=== PATIENT | female | born 1930 | race Caucasian/White ===

== ENCOUNTER 2016-04-09 08:31 | Observation (INO) | payer MEDICARE ==
[~2016-04-09] VITALS: Ht 165.1 cm; Wt 52.9 kg
[~2016-04-09 08:31] MED LIST: ACET325T51 PO; ASPI-973 PO; CARV6.252 PO; CLOP75TA3 PO; DICL100G8 TOPICAL; ESTR0.5T PO; GLIP5TAB21 PO; INSU100V4 SUBQ; LEVO50TA83 PO; LISI-567 PO; MULT1CAP33 PO; PROM25SU46 RC; SIMV40TA5 PO; ZOLP10TA5 PO
[2016-04-09 08:36] VITALS: BP 156/50; PULSE 79; RESP 13; O2SAT 95
--- NOTE | 2016-04-09 09:15 | DRSVH ---
PROCEDURE: X-RAY PELVIS W/LAT HIP (RT) ([id number]) INDICATIONS: fall, right hip pain TECHNIQUE: AP pelvis with lateral view(s) of the right hip(s). COMPARISON: None. FINDINGS: Bones: No acute fractures or dislocations. Chronic appearing right obturator ring fractures noted. Pelvic ring appears intact. No suspicious bony lesions. Bilateral hip osteophyte is noted. Soft tissues: The visualized bowel gas pattern is normal. No suspicious soft tissue calcifications. IMPRESSION: No acute fracture. No acute osseous lesion. If symptoms and/or clinical suspicion for pa thology persists, further assessment with repeat radiographs or advanced imaging (e.g. CT, MRI or bon e scan) may be helpful for further assessment. Dictated by: Eden Colby MD, PhD on 04/09/2016 at 9:13 Approved by: Eden Colby MD, PhD on 04/09/2016 at 9:13
--- NOTE | 2016-04-09 09:19 | ED.REPORT ---
HPI-Trauma Minor / Fall Date of Service Apr 09, 2016 ED Provider: Baldo Wayne DO Patient is an 86 year old female who presents to the ED via EMS complaining of R pelvis/hip pain s/p a fall to the ground last night after tripping and falling in the dark. She was able to ambulate after the incident but this morning she could not bare weight. When she fell she hit the back of her head and is complaining of head pain. She denies neck pain, back pain, LOC, or any other symptoms. She has been off of blood thinners for one month. Nursing Notes Stated Complaint: PELVIC PAIN, HEAD INJURY, GLF Chief Complaint: Multiple Trauma/Fall Nursing Notes Reviewed: Yes Allergies: Coded Allergies: Sulfa (Sulfonamide Antibiotics) (Verified Allergy, Severe, Rash, 08/04/15) codeine (Verified Adverse Reaction, Unknown, 08/04/15) Uncoded Allergies: ZOFRAN (Allergy, Intermediate, 03/07/16) "stroke symptoms" Scheduled Aspirin (Aspirin) 81 Mg Tablet.dr 81 MG PO Q2DAY Carvedilol (Carvedilol) 6.25 Mg Tablet 6.25 MG PO BID Clopidogrel Bisulfate (Plavix) 75 Mg Tablet 75 MG PO DAILY Estradiol (Estradiol) 0.5 Mg Tablet 0.5 MG PO DAILY Glipizide ER (Glipizide ER) 10 Mg Tab.er.24 10 MG PO BID Insulin Detemir (Levemir U100 Insulin Vial) 100 Unit/1 Ml Vial 6 UNIT SUBQ BID Levothyroxine (Synthroid) 50 Mcg Tablet 50 MCG PO DAILY Lisinopril (Lisinopril) 20 Mg Tablet 20 MG PO DAILY Multivitamin (Multivitamins) 1 Each Capsule 1 EACH PO DAILY Simvastatin (Simvastatin) 40 Mg Tablet 20 MG PO HS Scheduled PRN Acetaminophen (Acetaminophen) 325 Mg Tablet 325 MG PO Q4H PRN PRN For Fever Promethazine HCl (Phenergan) 25 Mg Supp.rect 25 MG RC TID PRN PRN For Nausea Zolpidem (Zolpidem) 10 Mg Tablet 10 MG PO HS PRN PRN For Insomnia Miscellaneous Medications Diclofenac Gel (Voltaren Gel) 100 Gm Tube 1 APPLIC TOPICAL General Time Seen by MD: 08:33 Chief Complaint Fall Hx Obtained From: Patient, EMS Arrived By: Ambulance Past Medical History Past Medical History Old compression fracture T4 Thyroid disease Reports: Diabetes mellitus, Hypertension Past Surgical History Aortic 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 Physical Exam Initial Vital Signs Vital Signs (First) Date Time Temp Pulse Resp B/P Pulse Ox O2 Delivery O2 Flow Rate FiO2 04/09/16 08:36 36.7 79 13 156/50 95 Room Air Initial VS: Reviewed Respiratory: Breath sounds normal, Clear to auscultation, No respiratory distress Cardiovascular: Regular rate & rhythm, Heart sounds normal, Intact distal pulses Skin: Warm, Dry Neurologic: Alert, Oriented, Nonfocal Psychiatric: Mood/affect normal, Behavior normal, Normal thought content General/Constitutional: Awake, Alert, Well appearing, Well developed Neck: Atraumatic, Supple, Full range of motion Head / Eyes: Normocephalic 3x3 cm posterior R occipital hematoma Cardiovascular: Heart rate NL, Regular rhythm, Heart sounds NL, Peripheral circulation NL, Pulses = bilaterally Back: Atraumatic, Inspection NL, Non-tender Lower Extremity / Pelvis / MS: Neurologic intact, Vascular intact Left Hip: Positive: Tenderness present... (Mild) eda tenderness in R hemipelvis Interpretation & Diagnostics CT PELVIS WITHOUT CONTRAST: IMPRESSION: 1. Nondisplaced anterior right acetabular fracture. 2. Fracture of the left pubic bone involving the body, superior ramus and inferior ramus. Dictated by: Eden Colby MD, PhD on 04/09/2016 at 11:45 Approved by: Eden Colby MD, PhD on 04/09/2016 at 11:45 Lab Results Interpretation Test 04/09/16 10:21 Hold Urine Received (Received) X-Ray Interpretation Xray Interpretation: IMPRESSION: No acute fracture. No acute osseous lesion. If symptoms and/or clinical suspicion for pathology persists, further assessment with repeat radiographs or advanced imaging (e.g. CT, MRI or bone scan) may be helpful for further assessment. Dictated by: Eden Colby MD, PhD on 04/09/2016 at 9:13 Approved by: Eden Colby MD, PhD on 04/09/2016 at 9:13 Study Performed: R Hip/pelvis X-Ray Ordered: Pelvis, Hip right Interpretation / Wet Read by: Interpret - Radiologist Xray Interpretation: IMPRESSION: No acute fracture. No acute osseous lesion. If symptoms and/or clinical suspicion for pathology persists, further assessment with repeat radiographs or advanced imaging (e.g. CT, MRI or bone scan) may be helpful for further assessment. Dictated by: Eden Colby MD, PhD on 04/09/2016 at 9:47 Approved by: Eden Colby MD, PhD on 04/09/2016 at 9:47 Study Performed: Pelvis, 2 views X-Ray Ordered: Pelvis Interpretation / Wet Read by: Interpret - Radiologist CT Head Interpretation IMPRESSION: No acute intracranial disease process. Dictated by: Eden Colby MD, PhD on 04/09/2016 at 9:29 Approved by: Eden Colby MD, PhD on 04/09/2016 at 9:29 Study: Head CT no contrast Interpretation / Wet Read by: Interpret - Radiologist Re-Eval/Medical Decision Med Decision/Clinical Course multiple pelvic fractures due to mechanical fall. unable to safely ambulate at home. Will be admitted. Re-Evaluation/Progress : Time of Eval: 12:06 Re-Evaluation/Progress Note: Rechecked patient. Discussed imaging results. Discussed plan for admit and rehabilitation. Patient understands and agrees with plan. All questions addressed at this time. Consultation #1: Referral / Consult Name: Sivakumar Rivas MD Consulted With: Orthopedic Call Returned at: 12:02 Note: Agrees to consult. TTWB on right, WBAT on left, get PT involved Consultation #2: Referral / Consult Name: Rodo Perez MD Consulted With: Hospitalist Call Returned at: 12:23 Mailing Section Clerk: Will see patient, Agrees with eval, Agrees with plan, Accepts admit Note: Agrees to admit Counseled Regarding: Diagnosis, Lab results, Need for admission Discharge & Departure Impression: Primary Impression: Pelvic fracture Disposition: ADMITTED TO HOSPITAL Referrals: Seth Mckay MD (PCP) Scribe Attestation Portions of this note were transcribed by Chuy Casas. I, Dr. Wayne personally performed the history, physical exam and medical decision-making; I reviewed and confirmed the accuracy of the information in the transcribed note. Signed by: Chuy Casas 04/09/16, 1257 copies to: Seth Mckay MD, Timothy S DO Apr 09, 2016 09:19 CHUY CASAS Apr 09, 2016 09:31
--- NOTE | 2016-04-09 09:31 | DRSVH ---
PROCEDURE: CT BRAIN WITHOUT CONTRAST ([id number]) INDICATIONS: fall, head injury TECHNIQUE: Noncontrast 4.5 mm thick angled axial sections acquired from the foramen magnum to the vertex, with c oronal reformats. COMPARISON: [facility], CT, BRAIN W/O CONTRAST, 02/02/2014, 21:23. FINDINGS: Image quality: Excellent. CSF spaces: Basal cisterns are patent. No extra-axial fluid collections. The ventricles are symmet terrance in size and shape. Brain: No intracranial bleeds or masses. There is cerebral volume loss for age, with resultant vent ricular and sulcal prominence. 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 There are periventricular and deep white matter chronic small vessel ischemic changes. There is intracranial internal carotid artery and vertebral artery atherosclerosis. Skull and face: Calvarium and visualized facial bones appear intact, without suspicious lesions. Lar ge right occipital scalp hematoma is noted. Sinuses: Mucosal thickening noted in the right maxillary sinus. The mastoids are clear. IMPRESSION: No acute intracranial disease process. Dictated by: Eden Colby MD, PhD on 04/09/2016 at 9:29 Approved by: Eden Colby MD, PhD on 04/09/2016 at 9:29
--- NOTE | 2016-04-09 09:49 | DRSVH ---
PROCEDURE: X-RAY PELVIS, ONE OR TWO VIEWS ([id number]) INDICATIONS: more views of right pelvis TECHNIQUE: 2 view(s) of the pelvis acquired. COMPARISON: None. FINDINGS: Bones: No acute fractures or dislocations. Chronic right obturator ring fractures noted. No suspici ous bony lesions. Soft tissues: Visualized bowel gas pattern is normal. No suspicious soft tissue calcifications. IMPRESSION: No acute fracture. No acute osseous lesion. If symptoms and/or clinical suspicion for pa thology persists, further assessment with repeat radiographs or advanced imaging (e.g. CT, MRI or bon e scan) may be helpful for further assessment. Dictated by: Eden Colby MD, PhD on 04/09/2016 at 9:47 Approved by: Eden Colby MD, PhD on 04/09/2016 at 9:47
--- NOTE | 2016-04-09 11:46 | DRSVH ---
PROCEDURE: CT PELVIS WITHOUT CONTRAST ([id number]) INDICATIONS: eval for occult injury or fracture TECHNIQUE: Noncontrast 3 mm axial sections acquired through the bony pelvis. Additional 3 mm axial sections acq uired through the symptomatic hip joint, with coronal and sagittal reformats. COMPARISON: None. FINDINGS: Image quality: Excellent. Bones: There is a nondisplaced fractures of the anterior margin of the right acetabulum (series 3, i mage 44-50). The fractures involving the left pubic body with extension into the left superior and i nferior pubic rami noted. Old right obturator ring fracture is noted. 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 Bilateral sacroiliac joint osteoarthritic degenerative changes are n oted. Lower lumbar spine degenerative disc disease and facet arthropathy are noted. Bones are diffu sely osteopenic. Soft tissues: No soft tissue fluid collections identified. No free intraperitoneal fluid or air mary ntified. Urinary bladder is within normal limits. IMPRESSION: 1. Nondisplaced anterior right acetabular fracture. 2. Fracture of the left pubic bone involving the body, superior ramus and inferior ramus. Dictated by: Eden Colby MD, PhD on 04/09/2016 at 11:45 Approved by: Eden Colby MD, PhD on 04/09/2016 at 11:45
[2016-04-09 12:48] VITALS: BP 156/58; PULSE 75; RESP 18; O2SAT 94
[2016-04-09] MEDS ORDERED: Ondansetron 2 mg/mL 2 mL Inj IVPUSH PRN ×2 (12:55→18:50)
[2016-04-09] MEDS ORDERED: Alum-Mag Hydrox-Simeth 30 mL Suspension PO PRN (12:55)
[2016-04-09] MEDS: 0.9% Sodium Chloride 250 ML IV SCH (13:11)
[2016-04-09] MEDS ORDERED: Polyethylene Glycol (PEG) 17 Gm Powder PO PRN (13:15)
[2016-04-09 13:31] VITALS: BP 156/58; PULSE 75; RESP 18; O2SAT 94
[2016-04-09 13:59] VITALS: BP 166/75; PULSE 72; RESP 16; O2SAT 100
[2016-04-09 14:50] VITALS: BP 168/75; PULSE 80; RESP 18; O2SAT 92
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
[2016-04-09] MEDS ORDERED: INSU100I25 SQ (16:27)
--- NOTE | 2016-04-09 16:29 | PCM.HPMED ---
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 She states she was going to bed and turned off the light but remembered something and tries to walk in the dark and tripped over and fell to the ground. She was able to get up and go to bed. Her right hip was painful. This morning she went to bathroom and has excruciating pain in her right hip and pelvis which prompted ED visit. Denies lightheadedness prior to fall. Denies chest pain in ED CT pelvis showed Nondisplaced anterior right acetabular fracture. Fracture of the left pubic bone involving the body, superior ramus and inferior ramus.. Brain CT unremarkable Admission requested for right acetabular fracture and pelvic fracture Review of Systems: A comprehensive review of systems performed, pertinent positives and negatives included in history of present illness Allergies Coded Allergies: Sulfa (Sulfonamide Antibiotics) (Verified Allergy, Severe, Rash, 08/04/15) codeine (Verified Adverse Reaction, Unknown, 08/04/15) Uncoded Allergies: ZOFRAN (Allergy, Intermediate, 03/07/16) "stroke symptoms" Home Medications Aspirin 81 mg daily Coreg 6.5 mg twice a day Estradiol 0.5 mg daily Glipizide 10 mg by mouth twice a day Levemir 8 units in a.m. 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 Repeat echo after valve replacement note available here. TAVR at Surgical History Recent TAVR Ectopic 2 when she was young Family History Reviewed and unremarkable Social History Hx Alcohol Use: No Hx Substance Use: No Smoking Status: Never Smoker Living Arrangement: Alone Exam Vital Signs Vital Sign - Last Date Time Temp Pulse Resp B/P Pulse Ox O2 Delivery O2 Flow Rate FiO2 04/09/16 13:59 36.7 72 16 166/75 100 Room Air Exam Gen. patient is lying comfortably in hospital bed HEENT: Head is normocephalic atraumatic, Pupils equal and reactive, extraocular movements intact, Lungs clear to auscultation bilaterally Heart regular rate and rhythm without murmurs gallops or rubs Abdomen soft nontender without hepatosplenomegaly Extremities right hip tenderness on passive movement Psych alert and oriented to person place and time Neuro cranial nerves II through XII are grossly intact Lymph: There is no lymphadenopathy appreciated in the cervical supra infraclavicular regions : no jackson Lab and Diagnostics X-Rays, CTs and MRIs PROCEDURE: CT PELVIS WITHOUT CONTRAST ([id number]) INDICATIONS: eval for occult injury or fracture TECHNIQUE: Noncontrast 3 mm axial sections acquired through the bony pelvis. Additional 3 mm axial sections acquired through the symptomatic hip joint, with coronal and sagittal reformats. COMPARISON: None. FINDINGS: Image quality: Excellent. Bones: There is a nondisplaced fractures of the anterior margin of the right acetabulum (series 3, image 44-50). The fractures involving the left pubic body with extension into the left superior and inferior pubic rami noted. Old right obturator ring fracture is noted. 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 Bilateral sacroiliac joint osteoarthritic degenerative changes are noted. Lower lumbar spine degenerative disc disease and facet arthropathy are noted. Bones are diffusely osteopenic. Soft tissues: No soft tissue fluid collections identified. No free intraperitoneal fluid or air identified. Urinary bladder is within normal limits. IMPRESSION: 1. Nondisplaced anterior right acetabular fracture. 2. Fracture of the left pubic bone involving the body, superior ramus and inferior ramus. 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 # Nondisplaced anterior right acetabular fracture and pelvic fracture due to mechanical fall, acute,poa -pain mx:morphine -ortho recommends non operative mx: "nonoperative management for her right acetabular and left pelvic fractures. The patient should avoid any more than touchdown weightbearing through her right lower extremity for the next 12 weeks to allow her acetabular fracture to heal in its present nondisplaced position. 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
[2016-04-09] MEDS: glipiZIDE 2.5 mg ER24 Tablet PO SCH (17:52)
[2016-04-09] MEDS: Insulin GLARgine 100 Unit/mL Syringe SUBQ SCH ×2 (18:50→22:23)
[2016-04-09] MEDS: MetoCLOpramide 5 mg/mL 2 mL Inj IVPUSH PRN (19:34)
--- NOTE | 2016-04-09 19:46 | NUR ---
Observation information provided and explained to pt and her son Brooklyn who is at bedside.
[2016-04-09] MEDS ORDERED: Insulin GLARgine 100 Unit/mL Syringe SUBQ SCH (20:30)
[2016-04-09] MEDS ORDERED: INSULIN DETEMIR 6 UNIT SUBQ SCH (20:30)
[2016-04-09] MEDS ORDERED: Non-Formulary Medication (Glipizide ER 10 MG) PO SCH (20:30)
[2016-04-09 20:40] VITALS: BP 162/76; PULSE 84; RESP 18; O2SAT 94
--- NOTE | 2016-04-09 23:41 | NUR ---
Pain Patient c/o 510 right hip pain. Offered Simon 5/325 PO or Morphine IVP. Patient declined both, stating, they would make her stomach upset tomorrow. Requesting order for Ultram PO and Tylenol PO. Dr. Arreola paged @ [phone] and new orders received. Medications given per order with effective results. Currently resting with eyes closed.
[2016-04-10 02:00] VITALS: BP 141/69; PULSE 84; RESP 16; O2SAT 98
[2016-04-10 07:01] LABS: BASOPHILS % (AUTO) 0.1 % (0-3); EOSINOPHILS % (AUTO) 3.3 % (0-5); MONOCYTES % (AUTO) 10.9 % (4-12); Mean Corpuscular Hemoglobin 31.3 pg (27.0-35.0); Mean Corpuscular Volume 92.3 fL (81-100); NEUTROPHILS % (AUTO) 67.1 % (40-74); Platelet Count 120 bil/L (150-400)
[2016-04-10 07:07] VITALS: BP 123/62; PULSE 80; RESP 18; O2SAT 93
[2016-04-10 07:20] LABS: Magnesium 1.7 mg/dL (1.6-2.6)
[2016-04-10] MEDS: Insulin GLARgine 100 Unit/mL Syringe SUBQ SCH ×2 (08:28→20:56)
[2016-04-10] MEDS ORDERED: Non-Formulary Medication (Multivitamin (Multivitamins) 1 EACH) PO SCH (08:30)
[2016-04-10 10:05] LABS: APPEARANCE,URINE CLEAR (CLEAR,HAZY); COLOR,URINE YELLOW (YELLOW); OCCULT BLOOD,URINE NEGATIVE (NEGATIVE); UROBILINOGEN,URINE NORMAL (NORMAL)
[2016-04-10] MEDS: glipiZIDE 2.5 mg ER24 Tablet PO SCH ×2 (10:05→16:55)
[2016-04-10] MEDS: MetoCLOpramide 5 mg/mL 2 mL Inj IVPUSH PRN ×3 (11:43→23:16)
--- NOTE | 2016-04-10 12:03 | NUR ---
Evaluation completed. Please go to "Notes" then click on "Assessments and Notes" (bottom left corner of screen). Then select appropriate discipline tab on top of screen.
[2016-04-10] MEDS ORDERED: ProchlorPERazine 5 mg/mL 2 mL Inj IVPUSH ONE (12:35)
[2016-04-10] MEDS: 0.9% Sodium Chloride 250 ML IV SCH (13:11)
--- NOTE | 2016-04-10 13:26 | PCM.PNMED ---
Subjective Date of Service Apr 10, 2016 Subjective She had nausea. Allergic to Zofran, Reglan given, pain controlled. Blood pressure elevated but now improving Exam Vital Signs Vital Sign - Last Date Time Temp Pulse Resp B/P Pulse Ox O2 Delivery O2 Flow Rate FiO2 04/10/16 07:07 37.1 80 18 123/62 93 Room Air Intake and Output 04/09/16 04/09/16 04/10/16 Cumulative From/Thru 15:00 23:00 07:00 04/09/16 08:36 - 04/09/16 18:58 Intake Total 150 ml 150 ml Output Total 850 ml 850 ml Balance -700 ml -700 ml Intake Oral 150 ml 150 ml Output Urine Total 850 ml 850 ml Exam Gen. patient is lying comfortably in hospital bed HEENT: Head is normocephalic atraumatic, Pupils equal and reactive, extraocular movements intact, Lungs clear to auscultation bilaterally Heart regular rate and rhythm without murmurs gallops or rubs Abdomen soft nontender without hepatosplenomegaly Extremities right hip tenderness on passive movement Psych alert and oriented to person place and time Neuro cranial nerves II through XII are grossly intact Lymph: There is no lymphadenopathy appreciated in the cervical supra infraclavicular regions : no jackson IVs and Medications Medications Reviewed: Medications were reviewed in detail Lab and Diagnostics Result Diagram: 04/10/1662604/10/16626 X-Rays, CTs and MRIs PROCEDURE: CT PELVIS WITHOUT CONTRAST ([id number]) INDICATIONS: eval for occult injury or fracture TECHNIQUE: Noncontrast 3 mm axial sections acquired through the bony pelvis. Additional 3 mm axial sections acquired through the symptomatic hip joint, with coronal and sagittal reformats. COMPARISON: None. FINDINGS: Image quality: Excellent. Bones: There is a nondisplaced fractures of the anterior margin of the right acetabulum (series 3, image 44-50). The fractures involving the left pubic body with extension into the left superior and inferior pubic rami noted. Old right obturator ring fracture is noted. 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 Bilateral sacroiliac joint osteoarthritic degenerative changes are noted. Lower lumbar spine degenerative disc disease and facet arthropathy are noted. Bones are diffusely osteopenic. Soft tissues: No soft tissue fluid collections identified. No free intraperitoneal fluid or air identified. Urinary bladder is within normal limits. IMPRESSION: 1. Nondisplaced anterior right acetabular fracture. 2. Fracture of the left pubic bone involving the body, superior ramus and inferior ramus. 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 # Nondisplaced anterior right acetabular fracture and pelvic fracture due to mechanical fall, acute,poa -pain mx:morphine -ortho recommends non operative mx: "nonoperative management for her right acetabular and left pelvic fractures. The patient should avoid any more than touchdown weightbearing through her right lower extremity for the next 12 weeks to allow her acetabular fracture to heal in its present nondisplaced position. 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 Possible discharge tomorrow Rodo Perez MD Apr 10, 2016 13:26
[2016-04-10] MEDS: HYDROcodone-APAP 5-325 mg Tablet PO PRN (15:53)
[2016-04-10 16:12] VITALS: BP 153/37; PULSE 74; RESP 18; O2SAT 94
--- NOTE | 2016-04-10 16:23 | NUR ---
Social Work Initial Assessment D: EMR Reviewed. See initial assessment. Pt is an 86Y old female INof for Multiple pelvic fractures. [employer] is Medicare and [employer] Supp. PCP is Dr. Mckay. [facility] met with Pt and son at bedside, SW role explained. Pt lives in a mobile home independently. Pt does not use DME but has both FWW and 4WW if needed. Pt's son and DIL also live in the same mobile home park. Pt continues to drive. Pt has previous HH history, denies SNF. No surgical repair indicated. PT=SNF. SW discussed with Pt and family. Pt to pay privately at SNF. [facility] to [facility] Pt with Dr. Norwood to follow. Acceptance not received until late this afternoon, current bed will be $295/day if still available tomorrow. SW will need to contact [facility] in the morning to confirm. Pt to likely discharge tomorrow. SW following. A: Pt who is independent at baseline P: PT=SNF. [facility] discussed with Pt and family. Pt to pay privately at SNF. [facility] to [facility] Pt with Dr. Norwood to follow. Acceptance not received until late this afternoon, current bed will be $295/day if still available tomorrow. SW will need to contact [facility] in the morning to confirm. Pt to likely discharge tomorrow. [facility] following. LALY Ravi Addendum: 04/10/16 at 1627 by KEISHA CAMARENA Amended: Links added.
--- NOTE | 2016-04-10 16:33 | NUR ---
Took over care at 3:30 pm Addendum: 04/10/16 at 1633 by LUZ MARIA RUANO CNA Amended: Links added.
--- NOTE | 2016-04-10 16:39 | NUR ---
Pt up to Bedside Commode Pt got out of bed for first time since admission to bed side commode after [place] to control pain. Pain currently, after transfer is a 3-4/10
[2016-04-10 21:30] VITALS: BP 180/81; PULSE 81; RESP 20; O2SAT 95
--- NOTE | 2016-04-10 22:44 | NUR ---
HTN: elevated bp's 160-170 systolic, pt. on 20mg lisinopril in am, pt. has had pain and anxiety with mobility.
[2016-04-11 00:51] VITALS: BP 152/75; PULSE 72; RESP 18; O2SAT 97
[2016-04-11] MEDS: HYDROcodone-APAP 5-325 mg Tablet PO PRN ×2 (04:51→11:14)
[2016-04-11 05:56] VITALS: BP 166/70; PULSE 71; RESP 18; O2SAT 96
[2016-04-11] MEDS: glipiZIDE 2.5 mg ER24 Tablet PO SCH (08:21)
[2016-04-11] MEDS: Insulin GLARgine 100 Unit/mL Syringe SUBQ SCH (08:24)
[2016-04-11] MEDS: 0.9% Sodium Chloride 250 ML IV SCH (13:11)
--- NOTE | 2016-04-11 13:16 | PCM.DIMED ---
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 Please continue physical therapy at [facility] facility. Please continue hydromorphone for pain as needed. Please continue aspirin for DVT prophylaxis. Follow-up plan Please follow-up with Dr Norwood at [facility] . Please follow-up with PCP 1 -2 weeks after discharge from [facility] facility. Please follow-up with orthopedics Dr. Rob Shaver on 04/21/2016. Please call his office to make the appointment. Follow-up Provider: Antonella Norwood MD Follow-up with PCP in: 1 week Provider: Seth Mckay MD Follow-up in: 3 weeks Mid-level Provider (F9): Sivakumar Rivas MD Follow-up with Mid-level in: 3 weeks Rodo Perez MD Apr 11, 2016 13:16
[2016-04-11] MEDS ORDERED: ENOX40DI8 SUBQ (13:18)
[2016-04-11] MEDS ORDERED: TRAM-14 PO (13:18)
[2016-04-11] MEDS ORDERED: HYDR-4003 PO (13:18)
[2016-04-11] MEDS: MetoCLOpramide 5 mg/mL 2 mL Inj IVPUSH PRN (13:23)
--- NOTE | 2016-04-11 14:15 | NUR ---
Social Work Discharge D: EMR Reviewed. Pt is on day 2 for multiple pelvic fractures. Pt is medically stable and discharging to [facility] with Dr. Norwood to follow via [facility]. Pt to pay privately for SNF and [facility] as Pt does not have a qualifying hospital stay and has been [facility] during this admission. [facility] updated Pt, family and [facility] admissions. All parties agreeable to plan. A: Pt who is independent at baseline P: t is medically stable and discharging to [facility] with Dr. Norwood to follow via [facility]. Pt to pay privately for SNF and [facility] as Pt does not have a qualifying hospital stay and has been [facility] during this admission. [facility] updated Pt, family and [facility] admissions. All parties agreeable to plan. LALY Ravi
--- NOTE | 2016-04-11 14:38 | PCM.DC.MED ---
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 Sivakumar Rivas Procedures XRay, CTs & MRIs PROCEDURE: CT PELVIS WITHOUT CONTRAST ([id number]) INDICATIONS: eval for occult injury or fracture TECHNIQUE: Noncontrast 3 mm axial sections acquired through the bony pelvis. Additional 3 mm axial sections acquired through the symptomatic hip joint, with coronal and sagittal reformats. COMPARISON: None. FINDINGS: Image quality: Excellent. Bones: There is a nondisplaced fractures of the anterior margin of the right acetabulum (series 3, image 44-50). The fractures involving the left pubic body with extension into the left superior and inferior pubic rami noted. Old right obturator ring fracture is noted. 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 Bilateral sacroiliac joint osteoarthritic degenerative changes are noted. Lower lumbar spine degenerative disc disease and facet arthropathy are noted. Bones are diffusely osteopenic. Soft tissues: No soft tissue fluid collections identified. No free intraperitoneal fluid or air identified. Urinary bladder is within normal limits. IMPRESSION: 1. Nondisplaced anterior right acetabular fracture. 2. Fracture of the left pubic bone involving the body, superior ramus and inferior ramus. 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 She states she was going to bed and turned off the light but remembered something and tries to walk in the dark and tripped over and fell to the ground. She was able to get up and go to bed. Her right hip was painful. This morning she went to bathroom and has excruciating pain in her right hip and pelvis which prompted ED visit. Denies lightheadedness prior to fall. Denies chest pain in ED CT pelvis showed Nondisplaced anterior right acetabular fracture. Fracture of the left pubic bone involving the body, superior ramus and inferior ramus.. 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 # Nondisplaced anterior right acetabular fracture and pelvic fracture due to mechanical fall, acute,poa -pain mx: Percocet and tramadol as needed -ortho recommends non operative mx: "nonoperative management for her right acetabular and left pelvic fractures. The patient should avoid any more than touchdown weightbearing through her right lower extremity for the next 12 weeks to allow her acetabular fracture to heal in its present nondisplaced position. 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 Please follow-up with orthopedics Dr. Rob Shaver on 04/21/2016. Please call his office to make the appointment. Exam Vital Signs (Last) Date Time Temp Pulse Resp B/P Pulse Ox O2 Delivery O2 Flow Rate FiO2 04/11/16 05:56 36.7 71 18 166/70 96 Room Air Exam Gen. patient is lying comfortably in hospital bed HEENT: Head is normocephalic atraumatic, Pupils equal and reactive, extraocular movements intact, Lungs clear to auscultation bilaterally Heart regular rate and rhythm without murmurs gallops or rubs Abdomen soft nontender without hepatosplenomegaly Extremities right hip tenderness on passive movement Psych alert and oriented to person place and time Neuro cranial nerves II through XII are grossly intact Lymph: There is no lymphadenopathy appreciated in the cervical supra infraclavicular regions : no jackson Test 04/09/16 10:21 04/10/16 06:27 Urine Color Yellow (YELLOW) Urine Appearance Clear (CLEAR,HAZY) Urine pH 6.0 (5.0-8.0) Urine Specific [place] 1.014 (1.003-1.035) Urine Protein Negativemg/dL (NEG,TRACE) Urine Glucose (UA) 250mg/dL (NEGATIVE) Urine Ketones Tracemg/dL (NEGATIVE) Urine Occult Blood Negative (NEGATIVE) Urine Nitrite Negative (NEGATIVE) Urine Bilirubin Negative (NEGATIVE) Urine Urobilinogen Normalmg/dL (NORMAL) Urine Leukocyte Esterase Negative (NEGATIVE) Urine RBC 0-2/hpf (0-2) Urine WBC 0-5/hpf (0-5) Urine Epithelial Cells Few/hpf (NONE-MOD) Urine Crystals None seen (NONE SEEN) Urine Bacteria None/hpf (NONE-FEW) Urine Hyaline Casts None/lpf (NONE) Urine Granular Casts None seen (NONE SEEN) Urine Waxy Casts None seen (NONE SEEN) Urine Red Blood Cell Casts None seen (NONE SEEN) Urine White Blood Cell Casts None seen (NONE SEEN) Urine Mucus None seen (None Seen) Urine Trichomonas None seen (NONE SEEN) Urine Yeast None (NONE SEEN) Urinalysis Comment None Urine Culture Reflexed Not indicated Hold Urine Received (Received) White Blood Count 6.7th/mm3 (3.8-10.1) Red Blood Count 3.51mil/mm3 (3.90-5.20) Hemoglobin 11.0g/dL (12.0-15.6) Hematocrit 32.4% (35.0-46.0) Mean Corpuscular Volume 92.3fL (81-100) Mean Corpuscular Hemoglobin 31.3pg (27.0-35.0) Mean Corpuscular Hemoglobin Concent 34.0% (32.0-37.0) Red Cell Distribution Width 12.6% (12.3-15.4) Platelet Count 120bil/L (150-400) Neutrophils (%) (Auto) 67.1% (40-74) Lymphocytes (%) (Auto) 18.5% (14-46) Monocytes (%) (Auto) 10.9% (4-12) Eosinophils (%) (Auto) 3.3% (0-5) Basophils (%) (Auto) 0.1% (0-3) Sodium Level 132mEq/L (134-144) Potassium Level 4.3mEq/L (3.5-5.2) Chloride Level 96mEq/L (97-108) Carbon Dioxide Level 25mmol/L (18-29) Blood Urea Nitrogen 22mg/dL (8-27) Creatinine 0.82mg/dL (0.57-1.00) Estimat Glomerular Filtration Rate 95mL/min (>59) Glucose Level 150mg/dL (60-99) Calcium Level 8.5mg/dL (8.5-10.1) Magnesium Level 1.7mg/dL (1.6-2.6) Total Bilirubin 0.7mg/dL (0.0-1.2) Aspartate Amino Transf (AST/SGOT) 14U/L (0-50) Alanine Aminotransferase (ALT/SGPT) 11U/L (0-32) Alkaline Phosphatase 46U/L (25-165) Total Protein 5.6g/dL (6.4-8.4) Albumin 3.4g/dL (3.4-5.0) Discharge Medications Discharge Medications Aspirin (Aspirin) 81 Mg Tablet.dr 81 MG PO Q2DAY (Reported) Carvedilol (Carvedilol) 6.25 Mg Tablet 6.25 MG PO BID (Reported) Enoxaparin Sodium (Enoxaparin Sodium) 40 Mg/0.4 Ml Syringe 40 MG SUBQ DAILY Prescribed by: RODO BUTLER MD Estradiol (Estradiol) 0.5 Mg Tablet 0.5 MG PO DAILY (Reported) Glipizide ER (Glipizide ER) 10 Mg Tab.er.24 10 MG PO BID (Reported) Insulin Detemir (Levemir U100 Insulin Vial) 100 Unit/1 Ml Vial 6 UNIT SUBQ DAILYWD (Reported) Insulin Detemir (Levemir Flextouch) 100 Unit/1 Ml Insuln.pen 8 UNIT SQ DAILYWM ( Reported) Levothyroxine (Synthroid) 50 Mcg Tablet 50 MCG PO DAILY (Reported) Lisinopril (Lisinopril) 20 Mg Tablet 20 MG PO DAILY (Reported) Multivitamin (Multivitamins) 1 Each Capsule 1 EACH PO DAILY (Reported) Simvastatin (Simvastatin) 40 Mg Tablet 20 MG PO HS (Reported) As needed Acetaminophen (Acetaminophen) 325 Mg Tablet 325 MG PO Q4H PRN PRN For Fever ( Reported) Hydrocodone-Acetaminophen 5-325 mg (Hydrocodone-Acetaminophen 5-325 mg) 1 Each Tablet 1-2 TABLET PO Q6H PRN PRN For Mild Pain Prescribed by: RODO BUTLER MD Tramadol (Ultram) 50 Mg Tablet 50 MG PO Q6H PRN PRN For Pain Prescribed by: RODO BUTLER MD Zolpidem (Zolpidem) 10 Mg Tablet 10 MG PO HS PRN PRN For Insomnia (Reported) Followup Plan Disposition: [facility] Follow-up plan Please follow-up with Dr Norwood at [facility] . Please follow-up with PCP 1 -2 weeks after discharge from [facility]. Please follow-up with orthopedics Dr. Rob Shaver on 04/21/2016. Please call his office to make the appointment. Discharge Diet: Low fat, Low Sodium Discharge Activity: Limited until seen by PCP Patient Instructions You were hospitalized due to Nondisplaced anterior right acetabular fracture and pelvic fracture due to mechanical fall. Please continue physical therapy at detention [facility]. Please continue hydromorphone for pain as needed. Please continue aspirin for DVT prophylaxis. Follow-up Provider: Antonella Norwood MD Follow-up with PCP in: 1 week Provider: Seth Mckay MD Follow-up in: 3 weeks Mid-level Provider: Sivakumar Rivas MD Follow-up with Mid-level in: 3 weeks copies to: Antonella Norwood MD; Seth Mckay MD, Melaku MD Apr 11, 2016 14:38
--- NOTE | 2016-04-11 15:03 | NUR ---
Faxed orders to [facility] and patient is being transported via [facility] at 1500.
--- NOTE | 2016-04-11 15:18 | NUR ---
Discharge To [facility] via cabulance at 15:15. Steady transfer to wheelchair. IV discontinued intact. All belongings sent with pt. Report phoned to [facility].
== END 2016-04-11 15:16 ==
LOC: SED 08:31 → OSC 12:50
PROVIDERS: ADMIT Internal Medicine; ATTEND Internal Medicine
DX: S32.414A Nondisplaced fracture of anterior wall of right acetabulum, initial encounter for closed fracture (principal); S32.512A Fracture of superior rim of left pubis, initial encounter for closed fracture; Y93.01 Activity, walking, marching and hiking; W01.0XXA Fall on same level from slipping, tripping and stumbling without subsequent striking against object, initial encounter; Y92.013 Bedroom of single-family (private) house as the place of occurrence of the external cause; E11.9 Type 2 diabetes mellitus without complications; I11.0 Hypertensive heart disease with heart failure; I50.20 Unspecified systolic (congestive) heart failure; E03.9 Hypothyroidism, unspecified; Z79.4 Long term (current) use of insulin; Z79.84 Long term (current) use of oral hypoglycemic drugs; Z79.82 Long term (current) use of aspirin; Z66 Do not resuscitate
CPT/HCPCS: 36415; 70450; 72170; 72192; 73501; 80053; 81000; 83735; 85025; 96374; 96375; 96376; 97162; 99285; G0378; G8978; G8979; J0780; J1650; J1815; J2765

== ENCOUNTER 2016-12-27 12:06 | Inpatient (IN) | payer MEDICARE ==
[2016-12-27] VITALS (7 sets, daily range): BP systolic 139–190; BP diastolic 42–81; PULSE 65–79; RESP 15–24; O2SAT 95–98
[~2016-12-27] VITALS: Ht 167.6 cm; Wt 62.1 kg
[~2016-12-27 12:06] MED LIST changes: -CLOP75TA3 PO; -DICL100G8 TOPICAL; +ENOX40DI8 SUBQ; +HYDR-4003 PO; +INSU100I25 SQ; -PROM25SU46 RC; +TRAM-14 PO
[2016-12-27 13:22] LABS: BASOPHILS % (AUTO) 0.3 % (0-3); MONOCYTES % (AUTO) 13.9 % (4-12); Mean Corpuscular Hemoglobin 30.9 pg (27.0-35.0); Mean Corpuscular Volume 90.9 fL (81-100); NEUTROPHILS % (AUTO) 55.4 % (40-74); Platelet Count 237 bil/L (150-400)
[2016-12-27 14:04] LABS: TROPONIN T 0.01 ug/L (0.0-0.011)
--- NOTE | 2016-12-27 14:12 | ED.REPORT ---
HPI-Extremity Problem Lower Date of Service Dec 27, 2016 ED Provider: Darlene Rooney History of Present Illness: 2 ibuprofen is what she takes for pain medication. remarla in [facility] is priamry care. legs are weeping. right worse than left. ongoing for 2 months.sob in the last few days. taking oral diuretics. . have been increased in the last week . [facility]. on 160 mg lasix. being treated for cellulitis Nursing Notes Stated Complaint: FLUID,RIGHT LEG/SKIN IS BREAKING Chief Complaint: Extremity Trauma Nursing Notes Reviewed: Yes Allergies: Coded Allergies: Sulfa (Sulfonamide Antibiotics) (Verified Allergy, Severe, Rash, 08/04/15) codeine (Verified Adverse Reaction, Unknown, 08/04/15) Uncoded Allergies: ZOFRAN (Allergy, Intermediate, 03/07/16) "stroke symptoms" Scheduled Aspirin (Aspirin) 81 Mg Tablet.dr 81 MG PO Q2DAY Carvedilol (Carvedilol) 6.25 Mg Tablet 6.25 MG PO BID Cefuroxime Axetil (Cefuroxime) 500 Mg Tablet 500 MG PO BID x10 days Clopidogrel (Clopidogrel) 75 Mg Tablet 75 MG PO DAILY Estradiol (Estradiol) 0.5 Mg Tablet 0.5 MG PO DAILY Fluoxetine (Fluoxetine) 10 Mg Tablet 10 MG PO DAILY Glipizide ER (Glipizide ER) 10 Mg Tab.er.24 10 MG PO BID Insulin Detemir (Levemir U100 Insulin Vial) 100 Unit/1 Ml Vial 12 UNIT SUBQ QAM Insulin Detemir (Levemir Flextouch) 100 Unit/1 Ml Insuln.pen 10 UNIT SQ QPM Levothyroxine (Levothyroxine) 75 Mcg Tablet 75 MCG PO DAILY Lisinopril (Lisinopril) 20 Mg Tablet 20 MG PO DAILY Multivitamin (Multivitamins) 1 Each Capsule 1 EACH PO DAILY Pantoprazole DR (Pantoprazole DR) 40 Mg Tablet.dr 40 MG PO DAILY Simvastatin (Simvastatin) 40 Mg Tablet 20 MG PO DAILY Scheduled PRN Acetaminophen (Acetaminophen) 325 Mg Tablet 1-2 EACH PO Q4H PRN PRN For Fever Bisacodyl (Dulcolax) 5 Mg Tablet.dr 5 MG PO DAILY PRN PRN For Constipation Calcium Carbonate (Antacid) 215 Mg Calcium (500 Mg) Tab.chew 2 EACH PO Q4H PRN PRN For Indigestion Hydrocodone-Acetaminophen 5-325 mg (Hydrocodone-Acetaminophen 5-325 mg) 1 Each Tablet 1 TABLET PO Q4H PRN PRN For Pain Ibuprofen (Ibuprofen) 200 Mg Capsule 400 MG PO TID PRN PRN For Pain Magnesium Hydroxide (Milk of Magnesia) 400 Mg/5 Ml Oral.susp 30 ML PO DAILY PRN PRN For Constipation Melatonin/Pyridoxine (Melatonin 5 mg Tablet) 1 Each Tablet 1 EACH PO HS PRN PRN Insomnia Trazodone (Trazodone) 50 Mg Tablet 25-50 MG PO HS PRN PRN Insomnia Zolpidem (Zolpidem) 10 Mg Tablet 10 MG PO HS PRN PRN For Insomnia General Time Seen by MD: 14:11 Chief Complaint Other (legs swollen, right one weeping) Hx Obtained From: Patient Onset Occurred: More than a week ago... (2 months) Symptom Duration: Since onset Past Medical History Past Medical History Old compression fracture T4 Thyroid disease Reports: Diabetes mellitus, Hypertension Past Surgical History Aortic valve TAVR 01/2016 Family History Noncontributory Smoking History Never Smoker Social History Alcohol Use: Denies alcohol use Drug Use: Denies drug use Other Social History: Lives in rehab facility Ambulatory Status Independent Review of Systems Basic Review of Systems Eyes: Vision NL, No discharge Allergy / Immune: No allergy Psychiatric: Normal thought content Physical Exam Initial Vital Signs Vital Signs (First) Date Time Temp Pulse Resp B/P Pulse Ox O2 Delivery O2 Flow Rate FiO2 12/27/16 12:25 36.5 69 16 174/74 98 Room Air Initial VS: Reviewed, Vital signs normal both legs and feet are swollen, right one has scattered areas of skin breakdown. Mild erthyma on both. Both has cobblestone appearance while skin in feet is clear but still with edema. General/Constitutional: Awake, Alert, No acute distress, Well appearing, Well developed Respiratory / Chest: Atraumatic, Breath sounds NL, Breath sounds = bilat, No respiratory distress Cardiovascular: Heart rate NL, Regular rhythm, Heart sounds NL, No gallop Interpretation & Diagnostics Lab Results Interpretation Result Diagram: 12/27/16 1315 12/27/16 1315 Test 12/27/16 13:15 12/27/16 14:52 White Blood Count 6.0th/mm3 (3.8-10.1) Red Blood Count 3.72mil/mm3 (3.90-5.20) Hemoglobin 11.5g/dL (12.0-15.6) Hematocrit 33.8% (35.0-46.0) Mean Corpuscular Volume 90.9fL (81-100) Mean Corpuscular Hemoglobin 30.9pg (27.0-35.0) Mean Corpuscular Hemoglobin Concent 34.0% (32.0-37.0) Red Cell Distribution Width 12.0% (12.3-15.4) Platelet Count 237bil/L (150-400) Neutrophils (%) (Auto) 55.4% (40-74) Lymphocytes (%) (Auto) 21.4% (14-46) Monocytes (%) (Auto) 13.9% (4-12) Eosinophils (%) (Auto) 9.0% (0-5) Basophils (%) (Auto) 0.3% (0-3) D-Dimer 1.25mg/L FEU (<0.50) Sodium Level 130mEq/L (134-144) Potassium Level 4.4mEq/L (3.5-5.2) Chloride Level 90mEq/L (97-108) Carbon Dioxide Level 26mmol/L (18-29) Blood Urea Nitrogen 25mg/dL (8-27) Creatinine 0.95mg/dL (0.57-1.00) Estimat Glomerular Filtration Rate 80mL/min (>59) Glucose Level 118mg/dL (60-99) Lactic Acid Level 1.8mmol/L (0.4-2.0) Calcium Level 8.8mg/dL (8.5-10.1) Total Bilirubin 0.4mg/dL (0.0-1.2) Aspartate Amino Transf (AST/SGOT) 18U/L (0-50) Alanine Aminotransferase (ALT/SGPT) 11U/L (0-32) Alkaline Phosphatase 79U/L (25-165) Troponin T 0.010ug/L (0.0-0.011) Pro-B-Type Natriuretic Peptide 5116pg/mL (0-738) Total Protein 6.5g/dL (6.4-8.4) Albumin 4.1g/dL (3.4-5.0) Hold [place] Top Tube Received (Received) Urine Color Straw (YELLOW) Urine Appearance Hazy (CLEAR,HAZY) Urine pH 7.5 (5.0-8.0) Urine Specific [place] 1.010 (1.003-1.035) Urine Protein Negativemg/dL (NEG,TRACE) Urine Glucose (UA) Negativemg/dL (NEGATIVE) Urine Ketones Negativemg/dL (NEGATIVE) Urine Occult Blood Negative (NEGATIVE) Urine Nitrite Negative (NEGATIVE) Urine Bilirubin Negative (NEGATIVE) Urine Urobilinogen Normalmg/dL (NORMAL) Urine Leukocyte Esterase Negative (NEGATIVE) Urine RBC 0-2/hpf (0-2) Urine WBC 0-5/hpf (0-5) Urine Epithelial Cells Occasional/hpf (NONE-MOD) Urine Crystals None seen (NONE SEEN) Urine Bacteria None/hpf (NONE-FEW) Urine Hyaline Casts None/lpf (NONE) Urine Granular Casts None seen (NONE SEEN) Urine Waxy Casts None seen (NONE SEEN) Urine Red Blood Cell Casts None seen (NONE SEEN) Urine White Blood Cell Casts None seen (NONE SEEN) Urine Mucus None seen (None Seen) Urine Trichomonas None seen (NONE SEEN) Urine Yeast None (NONE SEEN) Urinalysis Comment None Urine Culture Reflexed Not indicated X-Ray Interpretation Xray Interpretation: ROCEDURE: CT ANGIO CHEST PULMONARY EMBOLISM ([id number]) INDICATIONS: Short of breath TECHNIQUE: After the administration of intravenous contrast, 2 mm thick sections acquired from the pulmonary apices to the posterior costophrenic angles. 3-dimensional maximum intensity projection (MIP) coronal and sagittal reformats were then acquired through the thorax. For radiation dose reduction, the following was used: automated exposure control, adjustment of mA and/or kV according to patient size. COMPARISON: [facility], CT, CHEST/ABD/PEL WITH CONTRAST, 05/04/2014, 8:27. FINDINGS: Image quality: Excellent. Pulmonary arteries: Pulmonary arteries are normal in size, and demonstrate no intraluminal filling defects to suggest central pulmonary embolism. Lungs and pleura: There is a stable right lower lobe pulmonary nodule seen, as on series 7 image 30. This is unchanged compared to 2015, measuring up to 7 mm. No additional pulmonary nodules can be seen. Mild scattered areas of groundglass opacity are seen. There is a trace left-sided pleural effusion. No pneumothorax. Central airways are patent. No pleural effusions or pneumothorax. Central and peripheral airways are patent. Mediastinum: Heart size is normal, without pericardial effusion. A prosthetic aortic is seen. Mitral valve calcification is seen. No mediastinal or hilar adenopathy. Thoracic aorta is normal in caliber and enhancement. Esophagus is normal in caliber, without hiatal hernia. Bones and chest wall: No suspicious bony lesions. No rib fractures are seen. There is a moderate T11 anterior wedge deformity seen. Mild, chronic appearing anterior wedge deformities are seen elsewhere. Thyroid gland demonstrates no significant CT abnormality the. No axillary or supraclavicular adenopathy. Abdomen: Visualized upper abdominal solid organs appear normal in the early arterial phase of enhancement. IMPRESSION: Negative for pulmonary embolism. Scattered groundglass opacities are seen. The appearance is nonspecific. Differential diagnosis includes lobar edema and atypical infection. Trace left-sided pleural effusion. Stable right lower lobe pulmonary nodule, which is regarded to be benign. Stable T11 anterior wedge deformity. Milder wedge deformities are seen elsewhere. Incidental note is made of: Aortic valve prosthesis Re-Eval/Medical Decision Med Decision/Clinical Course 86 year old female presents for ongoing leg swelling of 2 months duration. She has recently, 2 days ago started antibiotics for leg cellulitis. But she is reporting increasing shortness of breath. Labs indicate CHF excerabtion, CT does not show any PE formation Admit for medical managment Discharge & Departure Impression: Primary Impression: CHF (congestive heart failure) Congestive heart failure chronicity: acute Disposition: ADMITTED TO HOSPITAL Referrals: Seth Mckay MD (PCP) EDSupervising Provider for APC: Yusuf Hartman MD copies to: Seth Mckay MD, Sue ARNP Dec 27, 2016 14:12
[2016-12-27 15:18] LABS: APPEARANCE,URINE HAZY (CLEAR,HAZY); COLOR,URINE STRAW (YELLOW); OCCULT BLOOD,URINE NEGATIVE (NEGATIVE); PH,URINE 7.5 (5.0-8.0); UROBILINOGEN,URINE NORMAL (NORMAL)
--- NOTE | 2016-12-27 16:16 | DRSVH ---
PROCEDURE: CT ANGIO CHEST PULMONARY EMBOLISM ([id number]) INDICATIONS: Short of breath TECHNIQUE: After the administration of intravenous contrast, 2 mm thick sections acquired from the pulmonary api sridevi to the posterior costophrenic angles. 3-dimensional maximum intensity projection (MIP) coronal a nd sagittal reformats were then acquired through the thorax. For radiation dose reduction, the follo wing was used: automated exposure control, adjustment of mA and/or kV according to patient size. COMPARISON: [facility], CT, CHEST/ABD/PEL WITH CONTRAST, 05/04/2014, 8:27. FINDINGS: Image quality: Excellent. Pulmonary arteries: Pulmonary arteries are normal in size, and demonstrate no intraluminal filling d efects to suggest central pulmonary embolism. Lungs and pleura: There is a stable right lower lobe pulmonary nodule seen, as on series 7 image 30. This is unchanged compared to 2014, measuring up to 7 mm. No additional pulmonary nodules can be se en. Mild scattered areas of groundglass opacity are seen. There is a trace left-sided pleural effus ion. No pneumothorax. Central airways are patent. No pleural effusions or pneumothorax. Central a nd peripheral airways are patent. Mediastinum: Heart size is normal, without pericardial effusion. A prosthetic aortic is seen. Mitr al valve calcification is seen. No mediastinal or hilar adenopathy. Thoracic aorta is normal in marybeth iber and enhancement. Esophagus is normal in caliber, without hiatal hernia. Bones and chest wall: No suspicious bony lesions. No rib fractures are seen. There is a moderate T 11 anterior wedge deformity seen. Mild, chronic appearing anterior wedge deformities are seen elsewh ere. Thyroid gland demonstrates no significant CT abnormality the. No axillary or supraclavicular a denopathy. Abdomen: Visualized upper abdominal solid organs appear normal in the early arterial phase of enhanc ement. IMPRESSION: Negative for pulmonary embolism. Scattered groundglass opacities are seen. The appearance is nonspecific. Differential diagnosis inc ludes lobar edema and atypical infection. Trace left-sided pleural effusion. Stable right lower lobe pulmonary nodule, which is regarded to be benign. Stable T11 anterior wedge deformity. Milder wedge deformities are seen elsewhere. Incidental note is made of: Aortic valve prosthesis Mitral valve calcification Dictated by: Abdi Reyes M.D. on 12/27/2016 at 16:06 Approved by: Abdi Reyes M.D. on 12/27/2016 at 16:14
[2016-12-27] MEDS ORDERED: CLOP75TA28 PO (16:25)
[2016-12-27] MEDS ORDERED: ESTR0.5T PO (16:25)
[2016-12-27] MEDS ORDERED: FLUO10TA PO (16:25)
[2016-12-27] MEDS ORDERED: CEFU500T61 PO (16:25)
[2016-12-27] MEDS ORDERED: LEVO75TA4 PO (16:28)
[2016-12-27] MEDS ORDERED: PANT40TA3 PO (16:28)
[2016-12-27] MEDS ORDERED: HYDR-4003 PO (16:33)
[2016-12-27] MEDS ORDERED: MELA1TAB16 PO (16:33)
[2016-12-27] MEDS ORDERED: BISA-67 PO (16:33)
[2016-12-27] MEDS ORDERED: IBUP200C PO (16:33)
[2016-12-27] MEDS ORDERED: CALC215T2 PO (16:33)
[2016-12-27] MEDS ORDERED: MAGN400O4 PO (16:35)
[2016-12-27] MEDS ORDERED: TRAZ-115 PO (16:35)
[2016-12-27] MEDS ORDERED: Alum-Mag Hydrox-Simeth 30 mL Suspension PO PRN (17:05)
[2016-12-27] MEDS ORDERED: Ondansetron 2 mg/mL 2 mL Inj IVPUSH PRN (17:05)
--- NOTE | 2016-12-27 18:11 | NUR ---
[place] [facility] [place] by ED RN. Patient arrived to room 3039 around 1740 via gurney. Patient was slid to bed with the assistance of 4 staff. Patient alert and oriented X3. Patient was oriented to room, staff, call light, room, visiting hours, and menu. Patient has redness to bilateral lower extremities with dryness. Patient has two small open wound to right lower extremity. Patient also has a bruise to right arm and a moderate size lump hard lump on right forearm, which patient states she has had for years. Patient bed locked and call light with in reach.
--- NOTE | 2016-12-27 18:47 | PCM.HPMED ---
Subjective Date of Service Dec 27, 2016 Primary Provider: Admitting Physician: Elba Price MD Primary Care Physician: Seth Mckay MD Attending Physician: Elba Price MD Chief Complaint: swollen legs History of Present Illness: She spent noting bilateral lower leg swelling (worse on the right) beginning worse over the last 2-3 months. Says the skin is so stretched that it sometimes breaks and wakes fluid and the swelling is painful. It's not going down at night like it used to. Does have mild shortness of breath with walking but is not short of breath at night, no orthopnea. No chest discomfort or palpitations. She is now at assisted living and her weight there on December 08 was 135 on December 24 it was 145. She does have some redness of the legs but no fever chills or sweats. She was started on cefuroxime this morning so has only received 1 dose. Review of Systems: Chronic right hip pain and some chronic constipation, otherwise negative except as above Allergies Coded Allergies: Sulfa (Sulfonamide Antibiotics) (Verified Allergy, Severe, Rash, 08/04/15) codeine (Verified Adverse Reaction, Unknown, 08/04/15) Uncoded Allergies: ZOFRAN (Allergy, Intermediate, 03/07/16) "stroke symptoms" Home Medications Aspirin 81 mg daily Coreg 6.5 mg twice a day plavix 75 mg daily Estradiol 0.5 mg daily fluoxetine 10 mg daily Glipizide XL 10 mg by mouth twice a day [id number] units in a.m. and 10 units at bedtime Synthroid 75 mg by mouth daily Lisinopril 20 mg daily torsemid 10 mg daily since 12/21, prior to that on increasing doses of lasix which was up to 80 mg bid MVI protonix 40 qam Simvastatin 40 mg per daily Cefuroxime 500 BID started this am so only one dose vicodin prn ibuprofen 400 tid prn trazodone 25-50 mg HS prn PMH diabetes, hypertension, TAVR 01/27/16 , history of systolic CHF EF 30-35% 06/22 echo Surgical History TAVR Ectopic 2 when she was young Family History Mother of stroke, father of a brain hemorrhage, sister has had breast cancer Social History Hx Alcohol Use: No Hx Substance Use: No Hx Tobacco Use: No Smoking Status: Never Smoker Additional Information , now living at "where the [facility]", has a son Brooklyn Vasquez is a [place] and 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 Exam Vital Signs Vital Sign - Last Date Time Temp Pulse Resp B/P Pulse Ox O2 Delivery O2 Flow Rate FiO2 12/27/16 17:42 70 12/27/16 17:33 36.5 16 165/70 96 Room Air Exam General: Alert and oriented, no acute distress HEENT: Unremarkable Neck: Neck veins are full, carotids 2+ Heart: Regular Lungs: Basilar inspiratory crackles half up bilaterally Abdomen: Soft, non-tender, bowel tones are present, no apparent hepatosplenomegaly Extremities: Lower legs with edema extends to trace pitting a few cm above knees , erythema and thickening of the skin with some wrinkling and flaking, also some white areas which she says is from cream she's been applying Neuro: 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 Managing strong and equal, able to raise both legs off the bed well against resistance Lab and Diagnostics Result Diagram: 12/27/16 1315 12/27/16 1315 Assessment & Plan # Bilateral Lower leg swelling most likely related to subacute on chronic systolic congestive heart failure - Ejection fraction and in June 2015 prior to her aortic valve replacement was 30-35% - also basilar inspir crackles in lungs - CT angiogram of the chest was negative for pulmonary embolus but could be consistent with pulmonary edema - proBNP 5116 - Obtain echocardiogram tomorrow - Lasix 80 mg IV twice a day - Repeat BMP in the morning but so far does not appear she's needed potassium replacement with her Lasix and torsemide orally as an outpatient # Type 2 diabetes mellitus - Continue long-acting insulin - Lispro sliding scale - Continue her usual glipizide # hypertension - Systolic blood pressure 150s to 170s so will increase lisinopril from 20-40 mg daily # insomnia and perhaps depression and/or anxiety - Continue same medications VTE Mechanical Devices: Venous Foot Pump Elba Price MD Dec 27, 2016 18:47
[2016-12-27] MEDS ORDERED: INSULIN DETEMIR 12 UNIT SUBQ SCH (19:05)
[2016-12-27] MEDS ORDERED: INSULIN DETEMIR 10 UNIT SQ SCH (19:05)
[2016-12-27] MEDS ORDERED: Magnesium Hydroxide 10 mL Oral Concentration PO PRN (19:25)
[2016-12-27] MEDS ORDERED: Dextrose 10% 250 ML IV PRN (20:00)
[2016-12-27] MEDS ORDERED: Glucose 40% Oral Gel 15 Gm Tube PO PRN (20:05)
[2016-12-27] MEDS ORDERED: Non-Formulary Medication (Glipizide ER 10 MG) PO SCH (20:30)
[2016-12-27] MEDS: Furosemide 10 mg/mL 4 mL Inj IVPUSH SCH (20:49)
[2016-12-27] MEDS ORDERED: 0.9% Sodium Chloride 250 ML ONE (20:51)
[2016-12-27] MEDS: HYDROcodone-APAP 5-325 mg Tablet PO PRN (22:04)
[2016-12-27] MEDS: Insulin LISPRO 300 Unit/3 mL Inj SUBQ SCH (22:05)
[2016-12-27] MEDS: Insulin GLARgine 100 Unit/mL Syringe SUBQ SCH (22:05)
[2016-12-28] VITALS (10 sets, daily range): BP systolic 120–179; BP diastolic 55–88; PULSE 62–83; RESP 20; O2SAT 93–97
[2016-12-28] MEDS: HYDROcodone-APAP 5-325 mg Tablet PO PRN ×5 (02:35→21:13)
--- NOTE | 2016-12-28 04:49 | NUR ---
PLAN OF CARE POC: Spoke with pt about her plan of care and what she wants to get out of being in the hospital. Pt described her life in the past year. Had been well since valve replacement, then fell around New Years and "everything has been down hill from there." Pt described being in pain constantly, stating, when asked about tolerable level of pain, "I don't even know anymore, I'm just always in pain." Pt became teary-eyed multiple times through the conversation. Pt also stated "I've never felt like this before, but sometimes it's just not worth it." Listened therapeutically, encouraged pt to think about any questions or concerns with the rounds in the morning. Pain: Pt receiving 1 [place] q4h and 400mg Ibuprofen q6h, somewhat effective. An hour before pt able to have another pain pill, pt became teary-eyed stating "My leg just taylor so bad." Warm blankets improve comfort. Sleep: Pt reported she has not been able to sleep through the night for awhile. Pt described at [facility], pt will fall asleep around 2300, sleep for a few hours, wake up to use the BR, and then go back to sleep for another couple hours. Lately, this has become worse. This shift, pt reported not sleeping at all until 0200, even with trazodone given. Pt reports melatonin as ineffective. Pt appears to be sleeping for a few hours after that, but then pt reports "I'm just trying to sleep." Room dark, door closed. Will try to interrupt as little as possible.
--- NOTE | 2016-12-28 06:06 | NUR ---
PAIN Pt awoke around 0600 needing to use BR. Pt quietly crying getting out of bed. On way back to bed, pt still crying stating "Oh lord," needing to rest her from moving her legs before making it back to bed. Paged Dr. Dumont, "1 tab [place] ineffective. Could you add IV pain med or increase PO? Thank you." Awaiting reply.
--- NOTE | 2016-12-28 06:16 | NUR ---
SOB/RETAIL CENTER RECEPTIONIST endoscopy technican left room at 0610 reporting pt states she can't catch her breath. industrial technology teacher reported ST depression in lead 2. Paged Dr. Dumont for order for EKG. Morphine also ordered, given after EKG. Awaiting results.
[2016-12-28 06:40] LABS: Mean Corpuscular Hemoglobin 30.5 pg (27.0-35.0); Mean Corpuscular Volume 89.9 fL (81-100)
[2016-12-28] MEDS: Insulin LISPRO 300 Unit/3 mL Inj SUBQ SCH ×4 (07:40→22:00)
[2016-12-28] MEDS: Polyethylene Glycol (PEG) 17 Gm Powder PO SCH (07:51)
[2016-12-28] MEDS: Furosemide 10 mg/mL 4 mL Inj IVPUSH SCH ×2 (07:52→21:16)
[2016-12-28] MEDS: Pantoprazole 40 mg ER24 Tablet PO SCH (07:52)
[2016-12-28] MEDS: Insulin GLARgine 100 Unit/mL Syringe SUBQ SCH ×2 (07:53→21:38)
--- NOTE | 2016-12-28 11:01 | DRSVH ---
[facility] [address] [place] [place] [address] Echocardiogram Report Name: SUGAR HARRIS LStudy Date: 12/28/2016 Height: 66 in Hospital Exam Location: [facility] Weight: 135 lb Gender: Female BSA: 1.7 m2 : 1930 Age: 86 yrs BP: 177/72 mmHg Reason For Study: CHF Ordering Physician: HOSPITALIST [facility] Performed By: Michael Wolf Referring Physician: Rita Mckay Interpretation Summary Left ventricular wall thickness is mildly increased. The ejection fraction is estimated to be 40-45%. Septal motion is consistent with conduction abnormality. Inferolateral hypokinesis-mild Compared to the prior exam, left ventricular function is slightly decreased. The left atrium is severely dilated. There is moderate mitral annular calcification. There is trace mitral regurgitation. The prosthetic aortic valve is well-seated. No aortic regurgitation is present. The right ventricular systolic pressure is estimated at 39 mmHg assuming a right atrial pressure of 8 mm Hg. Procedure: A two-dimensional transthoracic echocardiogram with color flow and Doppler was performed. The study quality was technically adequate. Comparison is made with the echocardiogram of 09/23/12. The patient was in normal sinus rhythm during the exam. Left Ventricle: The left ventricle is normal in size. Left ventricular wall thickness is mildly increased. The ejection fraction is estimated to be 40- 45%. Compared to the prior exam, left ventricular function is slightly decreased. Septal motion is consistent with conduction abnormality. Inferolateral hypokinesis-mild. Right Ventricle: The right ventricle is normal in size and function. Atria: The left atrium is severely dilated. Right atrial size is normal. The interatrial septum is intact with no evidence for an atrial septal defect. Mitral Valve: There is moderate mitral annular calcification. There is trace mitral regurgitation. Aortic Valve: There is a bioprosthetic aortic valve. The prosthetic aortic valve is well-seated. The prosthetic aortic valve function is normal. No aortic regurgitation is present. Tricuspid Valve: The tricuspid valve is normal in structure and function. There is trace tricuspid regurgitation. The right ventricular systolic pressure is estimated at 39 mmHg assuming a right atrial pressure of 8 mm Hg. Great Vessels: The aortic root is normal size. The ascending aorta is at the upper limits of normal in size. The pulmonary artery is normal size. The IVC is dilated (diameter is greater than 2.1 cm) yet it collapses greater than 50% with a sniff. This suggests a right atrial pressure of 8 mm Hg. Pericardium/ Pleura There is no pericardial effusion. There is no pleural effusion. MMode/2D Measurements & Calculations LVIDd: 5.3 cm LVIDs: 3.8 cm LA A2 area: 24.4 cm FS: 27.8 % LA A4 area: 23.4 cm IVSd: 1.2 cm LA length (vol): 5.2 cm LVPWd: 1.2 cm LA vol: 93.6 ml LA vol index: 55.3 ml/m IVC diam: 2.2 cm RA long axis: 4.3 cm asc Aorta Diam: 3.4 cm RA area: 15.8 cm RA vol: 49.6 ml RA : 29.3 ml/m2 EDV(MOD-sp2): 71.6 ml LV mercado. diameter/BSA (cm/m^2): 3.1 ESV(MOD-sp2): 36.3 ml EF(MOD-sp2): 49.3 % LV sys. diameter/BSA (cm/m^2): 2.2 Doppler Measurements & Calculations Ao V2 max: 240.7 cm/sec TR max denny: 276.0 cm/sec Ao max P.2 mmHg TR max P.5 mmHg Ao mean P.2 mmHg Ao V2 mean: 174.7 cm/sec Ao V2 VTI: 56.2 cm Electronically signed by: Guillermo Higgins on Reading Physician:12/28/2016 11:00 AM
--- NOTE | 2016-12-28 13:52 | PCM.PNMED ---
Subjective Date of Service Dec 28, 2016 Subjective pt had episode of dyspnea, but resolved denied any chest pain, SOB this AM trop in am lab remained negative. 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 Exam Vital Signs Vital Sign - Last Date Time Temp Pulse Resp B/P Pulse Ox O2 Delivery O2 Flow Rate FiO2 12/28/16 10:22 36.9 63 20 128/57 95 Room Air Intake and Output 12/27/16 12/27/16 12/28/16 Cumulative From/Thru 15:00 23:00 07:00 12/27/16 12:25 - 12/28/16 06:57 Intake Total 0 ml 489 ml 489 ml Output Total 300 ml 1650 ml 1950 ml Balance -300 ml -1161 ml -1461 ml Intake Oral 0 ml 456 ml 456 ml IV Total 33 ml 33 ml Output Urine Total 300 ml 1650 ml 1950 ml # Voids 1 1 2 # Bowel Movements 0 0 Exam NAD, comfortably laying down on the bed no JVD, MMM, no LAD RRR, nl s1, s2 no mrg CTAB, no w,c S,ND,NT,normoactive BS+ bilateral pitting edema 2+, diffuse erythematous, tender, weeping skin with superficial skin breakdown. IVs and Medications Medications Reviewed: Medications were reviewed in detail Lab and Diagnostics Result Diagram: 12/28/1661012/28/16610 Assessment & Plan 86-year-old female with a history of CAD s/p stent, DM, HTN, presented with worsening lower extremity edema acute, active # Bilateral Lower leg swelling most likely related to subacute on chronic systolic congestive heart failure based exam, CXR. Ejection fraction and in June 2015 prior to her aortic valve replacement was 30-35%. Repeat echo 12/28 showed slightly improved EF, stable prosthetic aortic valve, improved mild inf lateral wall motion abnormalities. Tropx3 neg. no ischemic chg on EKG. pt failed outpt tx with lasix 160mg bid. CTA chest ruled out PE. -clinically improving with current tx, continue Lasix 80 mg IV twice a day -daily wt, i/o, replete K,Mg as needed >4, >2 respectively #hypertension, better controlled with [id number] qd chronic, stable # Type 2 diabetes mellitus, Continue long-acting insulin. Lispro sliding scale. 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
--- NOTE | 2016-12-28 16:10 | NUR ---
Social Work: Initial Assessment / Multidisciplinary Rounds Data: See initial assessment. Patient is a 86 year old female who was admitted on 12/27/16 for CHF, cellulitis, and SOB per H&P. Patient's insurance is Medicare and [employer]. Patient's PCP is Seth Mckay MD. EMR reviewed. SW met with patient and family to discuss discharge planning. SW role explained. Patient's son Brooklyn confirms that patient resides at [facility] which is located in [place]. Brooklyn states that he is DPOA for patient and confirms that AD have been completed on patient's behalf. Brooklyn states that patient is I at baseline with the assistance of a FWW. Patient does not drive and relies on her family for transportation assistance. Patient received home health PT and OT 03/2016 however, Brooklyn is unable to remember the name of the home health agency. 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 Upon discharge, patient will return to [facility] and transportation will be provided by family. SW provided Brooklyn with a discharge planning checklist booklet and encouraged them to call with any questions or concerns. Phone number provided. Patient was discussed in morning rounds. No concerns were noted by staff or MD. SW will continue to follow for additional needs. Assessment: Patient is from [facility] and will likely return to [facility] when medically stable. Plan: Patient will likely return to [facility] when medically stable for discharge. Transportation will be provided by family. SW will continue to follow for additional needs. LALY Dotosn Addendum: 12/28/16 at 1628 by SILVIO CAMARENA Amended: Links added.
--- NOTE | 2016-12-28 17:36 | NUR ---
Daily update Patient alert and oriented X3. Patient requires 1 person assist with ambulation due to pain in right leg. Patient pain control was 9/10 this morning up arrival of shift and was brought back under control with [place] 5/325 and pain is currently at 2/10 at it best and 6/10 at its worse. Pain medication has been given close to every four hours PRN as ordered. Patient has order for wound care evaluation and wound on right lower leg started weeping this afternoon. Nurse cleaned wound with NS and placed telfa on wound and wrapped with kerlix until wound nurse could evaluate. Blood sugars have been within normal limits all day. Patient has good appetite, eating 75-100% of meals.
[2016-12-29] MEDS: HYDROcodone-APAP 5-325 mg Tablet PO PRN ×3 (01:17→13:11)
[2016-12-29 04:55] VITALS: PULSE 72
[2016-12-29 05:26] VITALS: BP 182/76
[2016-12-29 06:49] LABS: Magnesium 1.8 mg/dL (1.6-2.6)
[2016-12-29 08:00] VITALS: PULSE 79
[2016-12-29] MEDS: Insulin LISPRO 300 Unit/3 mL Inj SUBQ SCH ×4 (08:00→22:00)
[2016-12-29] MEDS: Pantoprazole 40 mg ER24 Tablet PO SCH (08:26)
[2016-12-29] MEDS: Insulin GLARgine 100 Unit/mL Syringe SUBQ SCH ×2 (08:30→22:11)
[2016-12-29] MEDS: Polyethylene Glycol (PEG) 17 Gm Powder PO SCH (08:30)
--- NOTE | 2016-12-29 09:27 | PCM.PNMED ---
Subjective Date of Service Dec 29, 2016 Subjective pt continues to responded lasix, less leg swelling today, denied orthopnea, however, pt was emotional about her health is going downhill, c/o left lower rib servere pain, pleuritic in nature, started 2weeks ago and resolved but came back last night, denied trauma, percocet 1tab worked but didn't last long. denied hemoptysis or cough Exam Vital Signs Vital Sign - Last Date Time Temp Pulse Resp B/P Pulse Ox O2 Delivery O2 Flow Rate FiO2 12/29/16 08:00 79 12/29/16 05:26 182/76 12/28/16 23:51 20 97 Room Air 12/28/16 21:30 36.8 Intake and Output 12/28/16 12/28/16 12/29/16 Cumulative From/Thru 15:00 23:00 07:00 12/27/16 12:25 - 12/29/16 06:18 Intake Total 852 ml 200 ml 1541 ml Output Total 600 ml 1200 ml 3750 ml Balance 252 ml -1000 ml -2209 ml Intake Oral 836 ml 200 ml 1492 ml IV Total 16 ml 49 ml Output Urine Total 600 ml 1200 ml 3750 ml # Voids 2 # Bowel Movements 0 Exam NAD, comfortably laying down on the bed no JVD, MMM, no LAD RRR, nl s1, s2 no mrg CTAB, no w,c, point td on Left 7th rib on mid clavicular line. S,ND,NT,normoactive BS+ bilateral pitting edema 2+, diffuse erythematous, tender, weeping skin with superficial skin breakdown. IVs and Medications Medications Reviewed: Medications were reviewed in detail Lab and Diagnostics Result Diagram: 12/28/1611 12/29/16 0627 Assessment & Plan 86-year-old female with a history of CAD s/p stent, DM, HTN, presented with worsening lower extremity edema acute, active # Bilateral Lower leg swelling most likely related to subacute on chronic systolic congestive heart failure based exam, CXR. Ejection fraction and in June 2015 prior to her aortic valve replacement was 30-35%. Repeat echo 12/28 showed slightly improved EF, stable prosthetic aortic valve, improved mild inf lateral wall motion abnormalities. Tropx3 neg. no ischemic chg on EKG. pt failed outpt tx with lasix 160mg bid. CTA chest ruled out PE. -clinically improving with current tx, continue Lasix 80 mg IV twice a day, i/o maintained in target, -daily wt, i/o, replete K,Mg as needed >4, >2 respectively #hypertension, better controlled with [id number] qd #lower rib pain, POA, started 2wks ago, exam consistent to MSK pain, chronic, stable # Type 2 diabetes mellitus, Continue long-acting insulin. Lispro sliding scale. 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
[2016-12-29 09:48] VITALS: BP 143/96; PULSE 71; RESP 19; O2SAT 96
[2016-12-29] MEDS ORDERED: FURO80TA83 PO (14:49)
--- NOTE | 2016-12-29 15:15 | NUR ---
Inpatient Wound Nurse Patient seen for LLE wounds. The lateral distal wound measures 3 cm L x 3 cm W x 0.1 cm D. Small areas of beefy red wound bed can be visualized below a scattering of 90% slough. Irregular wound margins are peeling and flakey, periwound erythema is tender to touch. The lateral proximal wound is 1 cm L x 3 cm W x 0.1 cm D. [place] wound bed with bumpy texture, no slough noted. Edges appear more distinct and well-adhered on this wound. Dr. Garcia agreed to Unna wraps. Wounds were cleansed and blotted dry, the both BLE were wrapped with Unna, Kerlix, and Coban. Hopefully the zinc and calazime will dry wounds and compression will improve pain and edema. These wraps may stay in place up to five days. Patient stated that [facility] will provide dressing changes if they are ordered. CWON will see patient on Sunday.
[2016-12-29 16:34] VITALS: BP 168/69; PULSE 71; RESP 20; O2SAT 95
--- NOTE | 2016-12-29 17:08 | NUR ---
Blood sugar patient's blood sugar prior to dinner 54. [place] juice 4 OZ and shaunna cracker given, blood sugar after 15 minutes [address] Cook p[address] orellana and awaiting response back. patient is alert and orientedX3. C/o pain to right rib 8/10 with movement, PRN Tramadol given with effective results. continue to monitor.
--- NOTE | 2016-12-29 17:40 | NUR ---
Social Work: Readiness For Discharge / Multidisciplinary Rounds Data & Assessment: EMR reviewed. Patient is on day 2 of hospitalization for CHF, cellulitis, and SOB per H&P. Patient was discussed in morning rounds. No concerns were noted by staff or MD. STONE received a visit from Melisa who is the Assistant Fitness Manager at [facility]. Melisa informed STONE that patient is able to return to [facility]. Melisa has requested that the following information be faxed over prior to patient's discharge: H&P, results of XRAY, documentation of bowel movement, and whether or not patient will require antibiotic therapy. STONE also received a message from primary RN. Patient's daughter is requesting that patient remain in the hospital until Sunday so that oral diuretics can be used and an appropriate dose can be determine prior to discharge. SW will continue to follow for additional needs. Plan: Patient will return to [facility] once deemed medically stable for discharge. SW will continue to follow for additional needs. LALY Dotson
[2016-12-29 20:29] VITALS: BP 174/68; PULSE 66; RESP 20; O2SAT 97
[2016-12-29] MEDS ORDERED: Furosemide 10 mg/mL 4 mL Inj IVPUSH SCH (20:30)
[2016-12-30] VITALS (7 sets, daily range): BP systolic 113–179; BP diastolic 63–74; PULSE 66–95; RESP 20; O2SAT 94–99
--- NOTE | 2016-12-30 06:45 | NUR ---
Pain c/o pain x2 this shift. Prn pain rx administered and effective. Currently resting without any complaints.
[2016-12-30] MEDS: Insulin LISPRO 300 Unit/3 mL Inj SUBQ SCH ×3 (08:00→17:30)
[2016-12-30] MEDS: Polyethylene Glycol (PEG) 17 Gm Powder PO SCH (08:07)
[2016-12-30] MEDS: Pantoprazole 40 mg ER24 Tablet PO SCH (08:08)
[2016-12-30] MEDS: Insulin GLARgine 100 Unit/mL Syringe SUBQ SCH (08:14)
[2016-12-30 09:23] LABS: Magnesium 1.8 mg/dL (1.6-2.6)
[2016-12-30] MEDS: HYDROcodone-APAP 5-325 mg Tablet PO PRN (10:24)
[2016-12-30] MEDS ORDERED: TRAM-14 PO (13:02)
[2016-12-30] MEDS ORDERED: LISI-567 PO (13:02)
[2016-12-30] MEDS ORDERED: TORS20TA PO (13:02)
[2016-12-30] MEDS ORDERED: POLY17PO6 PO (13:02)
[2016-12-30] MEDS ORDERED: CARV6.252 PO (13:02)
--- NOTE | 2016-12-30 13:09 | DRSVH ---
PROCEDURE: X-RAY LEFT RIBS, TWO VIEWS ([id number]) INDICATIONS: Lt lower rib pleuritic pain TECHNIQUE: 3 views of the left ribs were acquired. COMPARISON: [facility], CT, CHEST/ABD/PEL WITH CONTRAST, 05/04/2014, 8:27. [facility], CR, CHEST 2 VIEW, 08/11/2008, 9:09. FINDINGS: Surgical changes and devices: Aortic prosthesis redemonstrated. Bones and chest wall: Left 10th anterior lateral rib fracture. No suspicious bony lesions. Overlyin g soft tissues appear unremarkable. Lungs and pleura: The visualized lung appears clear. No pleural effusions or pneumothorax are visib le. IMPRESSION: Displaced left present at anterior lateral rib fracture. Dictated by: Lopez TORRES Interpreted: Patricia Tena MD on 12/29/2016 at 9:43 Approved by: Patricia Tena M.D. on 12/30/2016 at 13:07
--- NOTE | 2016-12-30 13:17 | PCM.DIMED ---
Discharge Instructions Date of Service Dec 30, 2016 Dates of Hospitalization Dec 27, 2016 at 16:18 Discharge Diagnosis Discharge Diagnosis acute dx Bilateral Lower leg swelling most likely related to subacute on chronic systolic congestive heart failure Chronic venous stasis with superficial laceration uncontrolled hypertension Left anteriorlateral lower rib fracture, likely due to recent trauma chronic dx # Type 2 diabetes mellitus # insomnia and perhaps depression and/or anxiety Diet Discharge Diet: Low fat, Low Sodium, Heart Healthy Activity Discharge Activity: No restrictions Call your provider Call your provider for: Shortness of breath Patient Instructions Patient Instructions You were hospitalized with significant leg swelling, likely due to your congestive heart failure. You were treated with IV diuretics, responded well. You were also noted to have chronic superficial wound and redness on legs, likely due to chronically retained water and venous blood. You received appropriate dressing by Wound care. Recommendation was given. You were also found to have rib fracture on left lower rib, it looks like it's from trauma. Given your severe ongoing pain, pain regimen was adjusted. Please follow instruction from wound care service: The lateral distal wound measures 3 cm L x 3 cm W x 0.1 cm D. Small areas of beefy red wound bed can be visualized below a scattering of 90% slough. Irregular wound margins are peeling and flakey, periwound erythema is tender to touch. The lateral proximal wound is 1 cm L x 3 cm W x 0.1 cm D. [place] wound bed with bumpy texture, no slough noted. Edges appear more distinct and well- adhered on this wound. Dr. Garcia agreed to Unna wraps. Wounds were cleansed and blotted dry, the both BLE were wrapped with Unna, Kerlix, and Coban. Hopefully the zinc and calazime will dry wounds and compression will improve pain and edema. These wraps may stay in place up to five days. Patient stated that [facility] will provide dressing changes if they are ordered. CWON will see patient on Sunday. Please note that your blood pressure was uncontrolled, Carvedilol was increased to 12.5mg twice a day, Lisinopril was increased to 40mg daily For the better absorption, Your furosemide was changed to Torsemide 40mg daily, please monitor your weight, leg swelling, if your start noticing your weight is going up, more swelling, please take twice a day. Please continue low-sodium diet. You were also referred to CHF clinic by Cardiology department, further medication adjustment will also be recommended. Please follow up with your primary doctor in 1-2weeks as well. Follow-up Provider: Seth Mckay MD Follow-up with PCP in: 1 week Eneida Garcia MD Dec 30, 2016 13:12
--- NOTE | 2016-12-30 15:05 | PCM.DC.MED ---
Discharge Summary Date of Service Dec 30, 2016 Dates of Hospitalization Date of Hospital Admission Dec 27, 2016 at 16:18 Date of Discharge: Dec 30, 2016 Providers: Admitting Physician: Elba Price MD Primary Care Physician: Seth Mckay MD Attending Physician: Eneida Okeefe MD Diagnosis at Time of Discharge Diagnosis at Time of Discharge acute dx Bilateral Lower leg swelling most likely related to subacute on chronic systolic congestive heart failure Chronic venous stasis with superficial laceration uncontrolled hypertension Left anteriorlateral lower rib fracture, likely due to recent trauma chronic dx # Type 2 diabetes mellitus # insomnia and perhaps depression and/or anxiety Procedures XRay, CTs & MRIs PROCEDURE: X-RAY LEFT RIBS, TWO VIEWS ([id number]) INDICATIONS: Lt lower rib pleuritic pain TECHNIQUE: 3 views of the left ribs were acquired. COMPARISON: [facility], CT, CHEST/ABD/PEL WITH CONTRAST, 05/04/2014, 8:27. [facility], CR, CHEST 2 VIEW, 08/11/2008, 9:09. FINDINGS: Surgical changes and devices: Aortic prosthesis redemonstrated. Bones and chest wall: Left 10th anterior lateral rib fracture. No suspicious bony lesions. Overlying soft tissues appear unremarkable. Lungs and pleura: The visualized lung appears clear. No pleural effusions or pneumothorax are visible. IMPRESSION: Displaced left present at anterior lateral rib fracture. Dictated by: Lopez Rivera [facility] Interpreted: Patricia Tena MD on 12/29/2016 at 9: 43 Approved by: Patricia Tena M.D. on 12/30/2016 at 13:07 PROCEDURE: CT ANGIO CHEST PULMONARY EMBOLISM ([id number]) INDICATIONS: Short of breath TECHNIQUE: After the administration of intravenous contrast, 2 mm thick sections acquired from the pulmonary apices to the posterior costophrenic angles. 3-dimensional maximum intensity projection (MIP) coronal and sagittal reformats were then acquired through the thorax. For radiation dose reduction, the following was used: automated exposure control, adjustment of mA and/or kV according to patient size. COMPARISON: [facility], CT, CHEST/ABD/PEL WITH CONTRAST, 05/04/2014, 8:27. FINDINGS: Image quality: Excellent. Pulmonary arteries: Pulmonary arteries are normal in size, and demonstrate no intraluminal filling defects to suggest central pulmonary embolism. Lungs and pleura: There is a stable right lower lobe pulmonary nodule seen, as on series 7 image 30. This is unchanged compared to 2015, measuring up to 7 mm. No additional pulmonary nodules can be seen. Mild scattered areas of groundglass opacity are seen. There is a trace left-sided pleural effusion. No pneumothorax. Central airways are patent. No pleural effusions or pneumothorax. Central and peripheral airways are patent. Mediastinum: Heart size is normal, without pericardial effusion. A prosthetic aortic is seen. Mitral valve calcification is seen. No mediastinal or hilar adenopathy. Thoracic aorta is normal in caliber and enhancement. Esophagus is normal in caliber, without hiatal hernia. Bones and chest wall: No suspicious bony lesions. No rib fractures are seen. There is a moderate T11 anterior wedge deformity seen. Mild, chronic appearing anterior wedge deformities are seen elsewhere. Thyroid gland demonstrates no significant CT abnormality the. No axillary or supraclavicular adenopathy. Abdomen: Visualized upper abdominal solid organs appear normal in the early arterial phase of enhancement. IMPRESSION: Negative for pulmonary embolism. Scattered groundglass opacities are seen. The appearance is nonspecific. Differential diagnosis includes lobar edema and atypical infection. Trace left-sided pleural effusion. Stable right lower lobe pulmonary nodule, which is regarded to be benign. Stable T11 anterior wedge deformity. Milder wedge deformities are seen elsewhere. Brief History History of present illness was obtained by Dr. Price on 12/27 She spent noting bilateral lower leg swelling (worse on the right) beginning worse over the last 2-3 months. Says the skin is so stretched that it sometimes breaks and wakes fluid and the swelling is painful. It's not going down at night like it used to. Does have mild shortness of breath with walking but is not short of breath at night, no orthopnea. No chest discomfort or palpitations. She is now at assisted living and her weight there on December 08 was 135 on December 24 it was 145. She does have some redness of the legs but no fever chills or sweats. She was started on cefuroxime this morning so has only received 1 dose. Hospital Course 86-year-old female with a history of CAD s/p stent, DM, HTN, presented with worsening lower extremity edema Patient noted to have significant bilateral lower extremity pitting edema, failed to respond with oral regimen of 160 Lasix twice a day. Initial ischemic workups with serial troponins 3 and EKG were negative for ACS. Patient denied any chest pain throughout the hospitalization. Repeat echo 12/28 showed slightly improved EF, stable prosthetic aortic valve, improved mild inf lateral wall motion abnormalities. CTA chest ruled out PE. Patient underwent diuretic course with Lasix 80 mg IV twice a day, was able to achieve target net i/o - 1liter/d with stable kidney functions. Patient was symptomatically greatly improved, Lasix IV was switched to torsemide 40 mg daily. Given chronic venous stasis with chronic leg swelling, weeping superficial in breakdown. Dressing was done appropriately by wound care, for the recommendation was given in discharge instruction. Patient was also recommended to monitor her weight, possibly adjust torsemide dose, maintained low-sodium diet. Patient was found to have left lower fracture, replete resulted from trauma given displaced lesion. Pain control was difficult but Percocet one tablets or trauma both 5200 mg worked relatively well. Blood pressure regimen was also changed given uncontrollable pressure 170s 180s, lisinopril was changed to 40 mg daily, Coreg was increased to 12.5 mg twice a day acute, active # Bilateral Lower leg swelling most likely related to subacute on chronic systolic congestive heart failure based exam, CXR. Ejection fraction and in June 2015 prior to her aortic valve replacement was 30-35%. Repeat echo 12/28 showed slightly improved EF, stable prosthetic aortic valve, improved mild inf lateral wall motion abnormalities. Tropx3 neg. no ischemic chg on EKG. pt failed outpt tx with lasix 160mg bid. CTA chest ruled out PE. -clinically improving with current tx, continue Lasix 80 mg IV twice a day, i/o maintained in target, -daily wt, i/o, replete K,Mg as needed >4, >2 respectively #hypertension, better controlled with [id number] qd #lower rib pain, POA, started 2wks ago, exam consistent to MSK pain, chronic, stable # Type 2 diabetes mellitus, Continue long-acting insulin. Lispro sliding scale. Continue her usual glipizide # insomnia and perhaps depression and/or anxiety, continue same medications dispo: likely 1-2more days, home Exam Vital Signs (Last) Date Time Temp Pulse Resp B/P Pulse Ox O2 Delivery O2 Flow Rate FiO2 12/30/16 13:30 36.7 66 20 152/66 97 Room Air Exam Patient was examined on the day of discharge Test 12/27/16 13:15 12/27/16 14:52 12/28/16 06:11 12/30/16 08:10 Neutrophils (%) (Auto) 55.4% (40-74) Lymphocytes (%) (Auto) 21.4% (14-46) Monocytes (%) (Auto) 13.9% (4-12) Eosinophils (%) (Auto) 9.0% (0-5) Basophils (%) (Auto) 0.3% (0-3) D-Dimer 1.25mg/L FEU (<0.50) Lactic Acid Level 1.8mmol/L (0.4-2.0) Pro-B-Type Natriuretic Peptide 5116pg/mL (0-738) Hold [place] Top Tube Received (Received) Urine Color Straw (YELLOW) Urine Appearance Hazy (CLEAR,HAZY) Urine pH 7.5 (5.0-8.0) Urine Specific [place] 1.010 (1.003-1.035) Urine Protein Negativemg/dL (NEG,TRACE) Urine Glucose (UA) Negativemg/dL (NEGATIVE) Urine Ketones Negativemg/dL (NEGATIVE) Urine Occult Blood Negative (NEGATIVE) Urine Nitrite Negative (NEGATIVE) Urine Bilirubin Negative (NEGATIVE) Urine Urobilinogen Normalmg/dL (NORMAL) Urine Leukocyte Esterase Negative (NEGATIVE) Urine RBC 0-2/hpf (0-2) Urine WBC 0-5/hpf (0-5) Urine Epithelial Cells Occasional/hpf (NONE-MOD) Urine Crystals None seen (NONE SEEN) Urine Bacteria None/hpf (NONE-FEW) Urine Hyaline Casts None/lpf (NONE) Urine Granular Casts None seen (NONE SEEN) Urine Waxy Casts None seen (NONE SEEN) Urine Red Blood Cell Casts None seen (NONE SEEN) Urine White Blood Cell Casts None seen (NONE SEEN) Urine Mucus None seen (None Seen) Urine Trichomonas None seen (NONE SEEN) Urine Yeast None (NONE SEEN) Urinalysis Comment None Urine Culture Reflexed Not indicated White Blood Count 5.8th/mm3 (3.8-10.1) Red Blood Count 3.47mil/mm3 (3.90-5.20) Hemoglobin 10.6g/dL (12.0-15.6) Hematocrit 31.2% (35.0-46.0) Mean Corpuscular Volume 89.9fL (81-100) Mean Corpuscular Hemoglobin 30.5pg (27.0-35.0) Mean Corpuscular Hemoglobin Concent 34.0% (32.0-37.0) Red Cell Distribution Width 12.1% (12.3-15.4) Platelet Count 240bil/L (150-400) Troponin T 0.011ug/L (0.0-0.011) Sodium Level 130mEq/L (134-144) Potassium Level 4.3mEq/L (3.5-5.2) Chloride Level 91mEq/L (97-108) Carbon Dioxide Level 32mmol/L (18-29) Blood Urea Nitrogen 18mg/dL (8-27) Creatinine 0.80mg/dL (0.57-1.00) Estimat Glomerular Filtration Rate 97mL/min (>59) Glucose Level 90mg/dL (60-99) Calcium Level 8.6mg/dL (8.5-10.1) Magnesium Level 1.8mg/dL (1.6-2.6) Total Bilirubin 0.5mg/dL (0.0-1.2) Aspartate Amino Transf (AST/SGOT) 17U/L (0-50) Alanine Aminotransferase (ALT/SGPT) 9U/L (0-32) Alkaline Phosphatase 64U/L (25-165) Total Protein 6.1g/dL (6.4-8.4) Albumin 3.9g/dL (3.4-5.0) Discharge Medications Discharge Medications Aspirin (Aspirin) 81 Mg Tablet.dr 81 MG PO Q2DAY (Reported) Carvedilol (Carvedilol) 6.25 Mg Tablet 12.5 MG PO BID Prescribed by: ENEIDA OKEEFE MD Clopidogrel (Clopidogrel) 75 Mg Tablet 75 MG PO DAILY (Reported) Estradiol (Estradiol) 0.5 Mg Tablet 0.5 MG PO DAILY (Reported) Fluoxetine (Fluoxetine) 10 Mg Tablet 10 MG PO DAILY (Reported) Glipizide ER (Glipizide ER) 10 Mg Tab.er.24 10 MG PO BID (Reported) Insulin Detemir (Levemir U100 Insulin Vial) 100 Unit/1 Ml Vial 12 UNIT SUBQ QAM (Reported) Insulin Detemir (Levemir Flextouch) 100 Unit/1 Ml Insuln.pen 10 UNIT SQ QPM ( Reported) Levothyroxine (Levothyroxine) 75 Mcg Tablet 75 MCG PO DAILY (Reported) Lisinopril (Lisinopril) 20 Mg Tablet 40 MG PO DAILY Prescribed by: ENEIDA OKEEFE MD Multivitamin (Multivitamins) 1 Each Capsule 1 EACH PO DAILY (Reported) Pantoprazole DR (Pantoprazole DR) 40 Mg Tablet.dr 40 MG PO DAILY (Reported) Polyethylene Glycol 3350 (Miralax) 17 Gm Powd.pack 17 GM PO DAILY Prescribed by: ENEIDA OKEEFE MD Simvastatin (Simvastatin) 40 Mg Tablet 20 MG PO DAILY (Reported) Torsemide (Demadex) 20 Mg Tablet 40 MG PO DAILY Prescribed by: ENEIDA OKEEFE MD As needed Bisacodyl (Dulcolax) 5 Mg Tablet.dr 5 MG PO DAILY PRN PRN For Constipation ( Reported) Calcium Carbonate (Antacid) 215 Mg Calcium (500 Mg) Tab.chew 2 EACH PO Q4H PRN PRN For Indigestion (Reported) Hydrocodone-Acetaminophen 5-325 mg (Hydrocodone-Acetaminophen 5-325 mg) 1 Each Tablet 1 TABLET PO Q4H PRN PRN For Pain (Reported) Magnesium Hydroxide (Milk of Magnesia) 400 Mg/5 Ml Oral.susp 30 ML PO DAILY PRN PRN For Constipation (Reported) Melatonin/Pyridoxine (Melatonin 5 mg Tablet) 1 Each Tablet 1 EACH PO HS PRN PRN Insomnia (Reported) Tramadol (Ultram) 50 Mg Tablet 50 MG PO TID PRN PRN For Mild Pain Prescribed by: ENEIDA OKEEFE MD Trazodone (Trazodone) 50 Mg Tablet 25-50 MG PO HS PRN PRN Insomnia (Reported) Zolpidem (Zolpidem) 10 Mg Tablet 10 MG PO HS PRN PRN For Insomnia (Reported) Followup Plan Disposition: home Discharge Diet: Low fat, Low Sodium, Heart Healthy Discharge Activity: No restrictions Patient Instructions You were hospitalized with significant leg swelling, likely due to your congestive heart failure. You were treated with IV diuretics, responded well. You were also noted to have chronic superficial wound and redness on legs, likely due to chronically retained water and venous blood. You received appropriate dressing by Wound care. Recommendation was given. You were also found to have rib fracture on left lower rib, it looks like it's from trauma. Given your severe ongoing pain, pain regimen was adjusted. Please follow instruction from wound care service: The lateral distal wound measures 3 cm L x 3 cm W x 0.1 cm D. Small areas of beefy red wound bed can be visualized below a scattering of 90% slough. Irregular wound margins are peeling and flakey, periwound erythema is tender to touch. The lateral proximal wound is 1 cm L x 3 cm W x 0.1 cm D. [place] wound bed with bumpy texture, no slough noted. Edges appear more distinct and well- adhered on this wound. Dr. Okeefe agreed to Unna wraps. Wounds were cleansed and blotted dry, the both BLE were wrapped with Unna, Kerlix, and Coban. Hopefully the zinc and calazime will dry wounds and compression will improve pain and edema. These wraps may stay in place up to five days. Patient stated that [facility] will provide dressing changes if they are ordered. [facility] will see patient on Sunday. Please note that your blood pressure was uncontrolled, Carvedilol was increased to 12.5mg twice a day, Lisinopril was increased to 40mg daily For the better absorption, Your furosemide was changed to Torsemide 40mg daily, please monitor your weight, leg swelling, if your start noticing your weight is going up, more swelling, please take twice a day. Please continue low-sodium diet. You were also referred to CHF clinic by Cardiology department, further medication adjustment will also be recommended. Please follow up with your primary doctor in 1-2weeks as well. Follow-up Provider: Seth Mckay MD Follow-up with PCP in: 1 week Time spent 65min Eneida Okeefe MD Dec 30, 2016 15:05
--- NOTE | 2016-12-30 19:30 | NUR ---
Discharge Reviewed discharge paperwork, care notes and medications with pt and son - disclaimer signed. IV DCd intact, tele removed and all belongings with pt. Pt denies SOB at rest, reports some leg and back pain that has been her normal for this stay. Administered dose of Toradol for pain relief, pt states pain has been reduced to 4/10. VSS. Pt escorted out of unit at 1930, son driving pt home to [facility].
== END 2016-12-30 19:13 | disposition home or self-care (01) | DRG 292 ==
LOC: SED 12:06 → MPC 16:18
PROVIDERS: ADMIT Internal Medicine; ATTEND Internal Medicine
DX: I50.23 Acute on chronic systolic (congestive) heart failure (principal); S22.32XA Fracture of one rib, left side, initial encounter for closed fracture; E11.9 Type 2 diabetes mellitus without complications; I10 Essential (primary) hypertension; I25.10 Atherosclerotic heart disease of native coronary artery without angina pectoris; G47.00 Insomnia, unspecified; I87.8 Other specified disorders of veins; X58.XXXA Exposure to other specified factors, initial encounter; Z79.82 Long term (current) use of aspirin; Z95.2 Presence of prosthetic heart valve; Z79.4 Long term (current) use of insulin; Y93.9 Activity, unspecified; Y92.9 Unspecified place or not applicable